=== PATIENT | male | born 1995 | race Caucasian/White ===

== ENCOUNTER 2024-10-08 09:19 | Emergency (ER) | payer OTHER ==
[~2024-10-08] VITALS: Ht 170.2 cm; Wt 77.1 kg
[2024-10-08 09:22] VITALS: O2SAT 100
[2024-10-08] MEDS ORDERED: CAPS42.514 TP (09:53)
[2024-10-08] MEDS ORDERED: ONDA4TAB50 MT (09:55)
[2024-10-08] MEDS: METOCLOPRAMIDE HCL 10MG/2ML VIAL IM STA (09:56)
[2024-10-08] MEDS ORDERED: MECL-217 MT (10:19)
[2024-10-08] MEDS ORDERED: ACET-2708 MT (10:19)
[2024-10-08 10:22] VITALS: BP 138/87; PULSE 57; RESP 15; TEMP 37.1; O2SAT 100
== END 2024-10-08 10:21 | disposition home or self-care (01) ==
LOC: ER 09:19
DX: R11.15 Cyclical vomiting syndrome unrelated to migraine (principal)
CPT/HCPCS: 96372; 99283; J2765; Z7610